=== PATIENT | male | born 1970 | race Caucasian/White ===

== ENCOUNTER 2020-06-28 11:59 | Outpatient (REF) | payer OTHER, SELFPAY ==
[2020-06-28 13:35] LABS: Ammonia 102 umol/L (13-55)
[2020-06-28 14:06] LABS: MANUAL DIFF FLAG NO
[2020-06-28 14:09] LABS: Basophils Percent Auto 0.7 % (0-2); Eosinophils Absolute Auto 0.2 X10*3/uL (0.0-0.4); Eosinophils Percent Auto 4.2 % (0-4); Hematocrit 28.3 % (42-52); Hemoglobin 9.6 g/dl (14.0-18.0); Imm Gran Abs Auto 0.02 X10*3/uL (0.00-0.03); Imm Gran Pct Auto 0.4 % (0.0-0.4); Lymphocytes Absolute Auto 1.4 X10*3/uL (1.2-4.9); Mean Corpuscular HGB Conc 33.9 g/dl (31.0-36.0); Mean Corpuscular Hemoglobin 33.7 pg (27.0-33.0); Mean Corpuscular Volume 99.3 fL (80-98); Mean Platelet Volume 10.5 fL (9.4-12.4); Monocytes Absolute Auto 0.4 X10*3/uL (0.1-1.2); Monocytes Percent Auto 9.5 % (2-11); Neutrophils Absolute Auto 2.5 X10*3/uL (2.0-8.3); Neutrophils Percent Auto 55.2 % (45-73); Red Blood Count 2.85 X10*6/uL (4.60-5.80); Red Cell Distribution Width 18.6 % (11.0-16.0); White Blood Count 4.5 X10*3/uL (4.8-10.8)
[2020-06-28 14:17] LABS: Platelet Count 89 X10*3/uL (160-400)
[2020-06-28 14:29] LABS: INTERNATIONAL NORM RATIO 1.7 (0.9-1.1); Prothrombin Time 20.4 SEC (10.8-13.0)
[2020-06-28 14:49] LABS: Alanine Aminotransferase 25 U/L (0-40); Anion Gap 13 (12-20); Aspartate Amino Transferase 46 U/L (5-37); Blood Urea Nitrogen 16 mg/dL (9-16); Calcium 8.8 mg/dL (8.4-10.2); Carbon Dioxide 22 mmol/L (22-29); Chloride 104 mmol/L (96-108); Estimated Glomerular Filt Rate > 60; Glucose Random 157 mg/dL (60-115); Potassium 4.6 mmol/l (3.3-5.1); Sodium 134 mmol/L (135-145)
[2020-06-28 14:58] LABS: Prostate Specific Antigen Scr 0.54 ng/mL (<0.05-4.0)
== END 2020-06-28 12:00 | disposition home or self-care (01) ==
LOC: HO.LAB 11:59
PROVIDERS: PCP Internal Medicine; Visit Provider Physician Assistant
DX: K70.30 Alcoholic cirrhosis of liver without ascites (principal); I86.4 Gastric varices; Z12.5 Encounter for screening for malignant neoplasm of prostate
CPT/HCPCS: 36415; 80048; 82140; 84153; 84450; 84460; 85025; 85610

== ENCOUNTER 2020-07-18 11:14 | Outpatient (REF) | payer OTHER, SELFPAY ==
[2020-07-18 13:55] LABS: MANUAL DIFF FLAG NO
[2020-07-18 13:58] LABS: Basophils Percent Auto 0.6 % (0-2); Eosinophils Absolute Auto 0.2 X10*3/uL (0.0-0.4); Eosinophils Percent Auto 3.9 % (0-4); Hematocrit 26.8 % (42-52); Hemoglobin 9.3 g/dl (14.0-18.0); Imm Gran Abs Auto 0.01 X10*3/uL (0.00-0.03); Imm Gran Pct Auto 0.2 % (0.0-0.4); Immature Retic Fraction 3.7 % (2.3-13.4); Lymphocytes Absolute Auto 1.7 X10*3/uL (1.2-4.9); Lymphocytes Percent Auto 27.5 % (20-40); Mean Corpuscular HGB Conc 34.7 g/dl (31.0-36.0); Mean Corpuscular Hemoglobin 33.3 pg (27.0-33.0); Mean Corpuscular Volume 96.1 fL (80-98); Mean Platelet Volume 10.2 fL (9.4-12.4); Monocytes Absolute Auto 0.5 X10*3/uL (0.1-1.2); Monocytes Percent Auto 8.1 % (2-11); Neutrophils Absolute Auto 3.7 X10*3/uL (2.0-8.3); Neutrophils Percent Auto 59.7 % (45-73); Red Blood Count 2.79 X10*6/uL (4.60-5.80); Retic HGB Equivalent 38.9 pg (30.0-35.0); Reticulocytes Absolute 0.027 X10*6/uL (0.026-0.095); White Blood Count 6.2 X10*3/uL (4.8-10.8)
[2020-07-18 14:01] LABS: Platelet Count 78 X10*3/uL (160-400)
[2020-07-18 14:11] LABS: Estimated Average Glucose 105 mg/dL; Hemoglobin A1c % 5.3 %
[2020-07-18 14:36] LABS: Alanine Aminotransferase 46 U/L (0-40); Albumin Level 3.3 g/dL (3.5-5.0); Alkaline Phosphatase 117 U/L (39-117); Anion Gap 13 (12-20); Aspartate Amino Transferase 64 U/L (5-37); Bilirubin Total 3.3 mg/dL (0.0-1.0); Blood Urea Nitrogen 15 mg/dL (9-16); Calcium 8.9 mg/dL (8.4-10.2); Carbon Dioxide 23 mmol/L (22-29); Chloride 95 mmol/L (96-108); Cholesterol 325 mg/dL; Estimated Glomerular Filt Rate > 60; Glucose Fasting 99 mg/dL (60-99); HDL Cholesterol 83 mg/dL; Iron 226 mcg/dL (45-160); LDL Cholesterol Calculated 225 mg/dl; Potassium 4.2 mmol/l (3.3-5.1); Sodium 127 mmol/L (135-145); Total Iron Binding Capacity < 243 mcg/dL (228-428); Total Protein 7.2 g/dL (6.5-8.0); Triglycerides 88 mg/dL; Unsaturated Iron Binding < 17 ug/dL
[2020-07-18 14:45] LABS: Ferritin 606 ng/mL (20-250); T4 Thyroxine 5.2 ug/dL (4.5-12.0); Thyroid Stimulating Hormone 0.47 uIU/mL (0.32-4.0)
[2020-07-18 15:27] LABS: Folate > 20.0 ng/mL (> or = 4.0); Vitamin B12 1068 pg/mL (200-900)
== END 2020-07-18 11:15 | disposition home or self-care (01) ==
LOC: HO.HMGCLDS 11:14
PROVIDERS: PCP Internal Medicine; Visit Provider Internal Medicine
DX: E66.9 Obesity, unspecified (principal); G47.33 Obstructive sleep apnea (adult) (pediatric); F41.9 Anxiety disorder, unspecified; E78.00 Pure hypercholesterolemia, unspecified; I10 Essential (primary) hypertension; R73.02 Impaired glucose tolerance (oral); Z12.11 Encounter for screening for malignant neoplasm of colon
CPT/HCPCS: 36415; 80053; 80061; 82607; 82728; 82746; 83036; 83540; 84436; 84443; 85025; 85045

== ENCOUNTER 2020-08-13 11:47 | Outpatient (REF) | payer OTHER, SELFPAY ==
[2020-08-13 13:52] LABS: MANUAL DIFF FLAG NO
[2020-08-13 13:58] LABS: Basophils Percent Auto 0.8 % (0-2); Eosinophils Absolute Auto 0.2 X10*3/uL (0.0-0.4); Eosinophils Percent Auto 4.8 % (0-4); Hematocrit 25.6 % (42-52); Hemoglobin 8.8 g/dl (14.0-18.0); Imm Gran Abs Auto 0.02 X10*3/uL (0.00-0.03); Imm Gran Pct Auto 0.4 % (0.0-0.4); Lymphocytes Absolute Auto 1.3 X10*3/uL (1.2-4.9); Lymphocytes Percent Auto 26.5 % (20-40); Mean Corpuscular HGB Conc 34.4 g/dl (31.0-36.0); Mean Corpuscular Hemoglobin 34.4 pg (27.0-33.0); Mean Platelet Volume 9.6 fL (9.4-12.4); Monocytes Absolute Auto 0.5 X10*3/uL (0.1-1.2); Monocytes Percent Auto 8.9 % (2-11); Neutrophils Percent Auto 58.6 % (45-73); Red Blood Count 2.56 X10*6/uL (4.60-5.80); Red Cell Distribution Width 18.6 % (11.0-16.0); Reticulocyte Percent 2.7 % (0.5-1.8); Reticulocytes Absolute 0.068 X10*6/uL (0.026-0.095); White Blood Count 5.1 X10*3/uL (4.8-10.8)
[2020-08-13 14:01] LABS: INTERNATIONAL NORM RATIO 1.8 (0.9-1.1); Prothrombin Time 21.1 SEC (10.8-13.0)
[2020-08-13 14:03] LABS: Platelet Count 91 X10*3/uL (160-400)
[2020-08-13 14:27] LABS: Alanine Aminotransferase 55 U/L (0-40); Alkaline Phosphatase 194 U/L (39-117); Anion Gap 13 (12-20); Aspartate Amino Transferase 100 U/L (5-37); Bilirubin Total 4.3 mg/dL (0.0-1.0); Blood Urea Nitrogen 13 mg/dL (9-16); Calcium 8.7 mg/dL (8.4-10.2); Carbon Dioxide 23 mmol/L (22-29); Chloride 104 mmol/L (96-108); Cholesterol 294 mg/dL; Estimated Glomerular Filt Rate > 60; Glucose Random 91 mg/dL (60-115); HDL Cholesterol 54 mg/dL; Iron 103 mcg/dL (45-160); LDL Cholesterol Calculated 211 mg/dl; Percent Iron Saturation 41 % (15-50); Sodium 136 mmol/L (135-145); Total Iron Binding Capacity 252 mcg/dL (228-428); Triglycerides 148 mg/dL; Unsaturated Iron Binding 149 ug/dL
[2020-08-13 14:48] LABS: Ferritin 431 ng/mL (20-250)
[2020-08-13 15:15] LABS: Folate 8.8 ng/mL (> or = 4.0); Vitamin B12 1168 pg/mL (200-900)
== END 2020-08-13 11:48 | disposition home or self-care (01) ==
LOC: HO.HMGCLDS 11:47
PROVIDERS: PCP Internal Medicine; Visit Provider Internal Medicine
DX: K70.30 Alcoholic cirrhosis of liver without ascites (principal); E78.00 Pure hypercholesterolemia, unspecified
CPT/HCPCS: 36415; 80053; 80061; 82607; 82728; 82746; 83540; 85025; 85045; 85610

== ENCOUNTER 2024-02-14 15:23 | Outpatient (AMB) | payer OTHER, SELFPAY ==
--- NOTE | 2024-02-14 15:24 | MHC.PC.OV ---
Vital Signs 02/14/24 15:26 Height 5 ft 10 in Weight 192 lb BMI 27.5 BP 108/72 Blood Pressure Location Lt brachial Position Sitting Pulse 91 Pulse Source Pulse Oximeter Pulse Oximetry (%) 96 Oxygen Delivery Method Room Air Intake Visit Reasons: Hepatology Referral-Liver Transplant Gauger Chief Required: No Allergies No Known Allergies [No Known Allergies*] Allergy (Verified 02/14/24 15:27) Medication List - Last Reconciled 02/14/24 by Roderick Davidson MD cholecalciferol (vitamin D3) 50 mcg PO DAILY citalopram 20 mg PO DAILY magnesium oxide 400 mg PO DAILY multivitamin 1 tab PO DAILY tacrolimus 2 mg PO Q12H ursodiol 500 mg PO BID Tobacco use date assessed: 02/14/24 Dental Screening Dental Screen Date: 02/14/24 HPI Hepatology Referral-Liver Transplant HPI Details [age] year old overweight male(noted weight loss 30 lb) with history of transplanted liver hypercholesterolemia Shey anxiety disorder depression and impaired glucose tolerance last seen in 10/26/2022. Patient continues to follow-up with Gastroenterology and colonoscopy done 06/25/2022 having tubular adenoma. EGD done 06/25/2022 also. 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 Does have osteopenia 03/25/2023. Maria Fernanda last year discussion of stent removal May 2023. plt 108, no anemia sugar 88 tacrolimis 4.5 creatinine 0.95magn 1.7LFT N LDL 92, TC 178 TG181 HDL 58 PFSH Medical History (Updated 02/14/24 @ 16:23 by Roderick Davidson MD) Vitamin D deficiency Hypercholesterolemia Obstructive sleep apnea Obesity (BMI 30-39.9) Anxiety and depression Surgical History History of endoscopy History of hypospadias Family History Father Acute CVA (cerebrovascular accident) Mother No problems noted. Paternal Grandmother Cancer Social History Housing: House Alcohol intake: former Year quit: 2019 Patient Tobacco Use Status: Never used Tobacco e-Cigarette/Vaping Use: Never Used Second Hand Smoke Exposure: No service: No Current occupational status: disabled Cognitive needs: Yes Hearing needs: No Vision needs: No Questionnaire PHQ-9 Over the last 2 weeks, how often have you been bothered by any of the following problems? 1. Little interest or pleasure in doing things: not at all 2. Feeling down, depressed, or hopeless: not at all 3. Trouble falling or staying asleep, or sleeping too much: not at all 4. Feeling tired or having little energy: not at all 5. Poor appetite or overeating: not at all 6. Feeling bad about yourself - or that you are a failure or have let yourself or your family down: not at all 7. Trouble concentrating on things, such as reading the newspaper or watching television: not at all 8. Moving or speaking so slowly that other people could have noticed. Or the opposite - being so fidgety or restless that you have been moving around a lot more than usual: not at all 9. Thoughts that you would be better off or of hurting yourself in some way: not at all Total score: 0 Depression Screening Interpretation: Negative Depression Screening Done: Yes Source: Developed by Drs. Elroy Rudd, Ivet Jefferson, Tera Nowak and colleagues, with an educational shefali from [employer]. Thrive Questionnaire Date Thrive assessed: 02/14/24 I am a: Patient What is your living situation today?: I have a steady place to live Within the past 12 months, did the food you bought not last and you didn't have the money to get more?: Never true Within the past 12 months, did you worry whether your food would run out before you got money to buy more?: Never true Currently or been in a relationship where the following occur: no concerns reported THRIVE Score: 0 AUDIT C Alcohol Use Questionnaire (AUDIT-C) 1. How often do you have a drink containing alcohol?: Never 2. How many drinks containing alcohol do you have on a typical day when you are drinking?: 1 or 2 (0) 3. How often do you have six or more drinks on one occasion?: Never Total Score: 0 PETTY-7 AMB Questionnaire PETTY-7 Date PETTY - 7 assessed: 02/14/24 Source: Developed by Drs. Elroy Rudd, Ivet Jefferosn, Tera Nowak and colleagues, with an educational shefali from [employer]. Physical exam (Primary Care) Vital Signs: Last Vital Signs Pulse 91 02/14/24 15:26 BP 108/72 02/14/24 15:26 Pulse Ox 96 02/14/24 15:26 Oxygen Delivery Method Room Air 02/14/24 15:26 BMI result Body Mass Index 27.5 Tobacco/Smoking Status: Tobacco use Status Tobacco use date assessed 02/14/24 02/14/24 15:26 Patient Tobacco Use Status Never used Tobacco 02/14/24 15:26 e-Cigarette/Vaping Use Never Used 02/14/24 15:26 PHQ-9: PHQ-9 Score PHQ-9: Total score 0 02/14/24 15:27 Depression Screening Interpretation: Negative Thrive Assessment: Date of Thrive Assessment Date Thrive assessed 02/14/24 02/14/24 15:27 Currently or been in a relationship where the following occur: no concerns reported Const General: alert; No acute distress Eyes Conjunctivae: conjunctivae normal Resp Auscultation: clear to auscultation bilaterally Cardio Rate: regular rate Rhythm: regular rhythm GI Inspection: Yes normal to inspection Extrem General: Yes normal to inspection and No edema Assessment and Plan Assessment & Plan (1) Liver transplanted: Comment: [id number] with past medical history of EtOH cirrhosis status post liver transplant 01/31/2021 postop bile leak requiring ERCP with multiple stents with last stent June 2022 planned ERCP December 2022 recommendations colonoscopy done 2021, dermatology(09/2022) , bone density every 2-3 years, (plannedJun2022) Code(s): Z94.4 - Liver transplant status Plan: Patient continues to follow-up with [facility] doing good continuing with tacrolimus (2) HTN (hypertension): Comment: resolved Code(s): I10 - Essential (primary) hypertension Qualifiers: Hypertension type: essential hypertension Qualified Code(s): I10 - Essential (primary) hypertension Plan: resolved (3) PETTY (generalized anxiety disorder): Comment: couselling and therapy scheduled. Wolfgang Ruelas Q 5 weeks (03/2022) Code(s): F41.1 - Generalized anxiety disorder Plan: Blood pressure has been under control with no medication (4) Hypercholesterolemia: Code(s): E78.00 - Pure hypercholesterolemia, unspecified Plan: Avoid fried foods, chicken skin, eggs, butter margarine, pastries and meat. Be it pork or beef they have a lot of cholesterol (5) Obstructive sleep apnea: Comment: Two thousand sixteen, NO CPAP - resolved Code(s): G47.33 - Obstructive sleep apnea (adult) (pediatric) (6) MDD (major depressive disorder): Comment: therapist monthly and psychiatrist Q 6 months Code(s): F32.9 - Major depressive disorder, single episode, unspecified Qualifiers: Major depression recurrence: recurrent Active/Remission status: currently active Major depression episode severity: moderate Qualified Code(s): F33.1 - Major depressive disorder, recurrent, moderate Plan: Continuing counseling and therapy. (7) Overweight (BMI 25.0-29.9): Code(s): E66.3 - Overweight Plan: diet and exercises Orders: Orders Thyroid Stimulating Hormone Today I10 - Essential (primary) hypertension Free T4 (Free Thyroxine) Today I10 - Essential (primary) hypertension Vitamin B12 and Folate Today I10 - Essential (primary) hypertension Prostate Specific Antigen Scr Today I10 - Essential (primary) hypertension Coding Level of Care Code Est Pt Level 4 (43531) Diagnoses Liver transplanted Z94.4 Essential hypertension I10 Hypertension type: essential hypertension PETTY (generalized anxiety disorder) F41.1 Hypercholesterolemia E78.00 Obstructive sleep apnea G47.33 Moderate episode of recurrent major depressive disorder F33.1 Major depression recurrence: recurrent Active/Remission status: currently active Major depression episode severity: moderate Overweight (BMI 25.0-29.9) E66.3
[2024-02-14 15:26] VITALS: BP 108/72; PULSE 91; O2SAT 96; BMI 27.5
== END 2024-02-14 16:30 | disposition home or self-care (01) ==
PROVIDERS: PCP Internal Medicine; Visit Provider Internal Medicine
DX: I10 Essential (primary) hypertension (principal); F33.1 Major depressive disorder, recurrent, moderate; Z94.4 Liver transplant status; F41.1 Generalized anxiety disorder; E78.00 Pure hypercholesterolemia, unspecified; G47.33 Obstructive sleep apnea (adult) (pediatric); E66.3 Overweight
CPT/HCPCS: 99214

== ENCOUNTER 2024-03-15 10:02 | Outpatient (REF) | payer OTHER, SELFPAY ==
[2024-03-15 14:07] LABS: Free T4 (Free Thyroxine) 0.86 ng/dL (0.71-1.85); Thyroid Stimulating Hormone 0.66 uIU/mL (0.32-4.0)
[2024-03-15 14:24] LABS: Folate 14.5 ng/mL (> or = 4.0); Prostate Specific Antigen Scr 1.03 ng/mL (<0.05-4.0); Vitamin B12 549 pg/mL (200-900)
== END 2024-03-15 10:03 | disposition home or self-care (01) ==
LOC: HO.HMGCLDS 10:02
PROVIDERS: PCP Internal Medicine; Visit Provider Internal Medicine
DX: I10 Essential (primary) hypertension (principal); Z12.5 Encounter for screening for malignant neoplasm of prostate
CPT/HCPCS: 36415; 82607; 82746; 84153; 84439; 84443

== ENCOUNTER 2024-07-06 14:57 | Outpatient (AMB) | payer OTHER, SELFPAY ==
[2024-07-06 14:59] VITALS: BP 122/82; PULSE 78; O2SAT 95; BMI 26.4
--- NOTE | 2024-07-06 14:59 | A.OFFPC_ITS ---
Vital Signs 07/06/24 14:59 Height 5 ft 10 in Weight 184 lb BMI 26.4 BP 122/82 Blood Pressure Location Lt brachial Position Sitting Pulse 78 Pulse Source Pulse Oximeter Pulse Oximetry (%) 95 Oxygen Delivery Method Room Air Intake Visit Reasons: PE Raveler Required: No Accompanied by: Self / Same As Patient Allergies No Known Allergies [No Known Allergies*] Allergy (Verified 07/06/24 14:59) Medication List - Last Reconciled 07/06/24 by Roderick Davidson MD cholecalciferol (vitamin D3) 50 mcg PO DAILY citalopram 20 mg PO DAILY magnesium oxide 400 mg PO DAILY multivitamin 1 tab PO DAILY tacrolimus 2 mg PO Q12H ursodiol 500 mg PO BID Tobacco use date assessed: 02/14/24 Dental Screening Dental Screen Date: 02/14/24 HPI PE HPI Details 54-year-old overweight male with a histo ry of liver transplant 01/31/2021(for alcohol-related cirrhosis) hypertension generalized anxiety disorder hypercholesterolemia obstructive sleep apnea major depressive disorder coming in for physical exam last seen in February. Patient's last colon test is 2021 with tubular adenoma. Review of the notes liver transplant clinic seen in September. On tacrolimus advised to decrease on ursodiol advised Dermatology yearly colonoscopy next 202603/25/2023 bone density shows osteopenia, 07/05/2024 wbc 4.3, hgb 14.7/44.2 plt 120tacrolimus 3.1 , NA 138, k 4.9 creatinine 1.01 gfr 88 ca 9.6 magnesium 1.5 LFT N LDL 11/2023 T 178, HDL 58, TRIG 181, LDL 92 PFSH Medical History (Updated 07/06/24 @ 16:05 by Roderick Davidson MD) Vitamin D deficiency Hypercholesterolemia Obstructive sleep apnea Obesity (BMI 30-39.9) Anxiety and depression Surgical History History of endoscopy History of hypospadias Family History Father Acute CVA (cerebrovascular accident) Mother No problems noted. Paternal Grandmother Cancer Social History Housing: House Alcohol intake: former Year quit: 2019 Patient Tobacco Use Status: Never used Tobacco Tobacco use type: Cigarette e-Cigarette/Vaping Use: Never Used Second Hand Smoke Exposure: No service: No Current occupational status: disabled Cognitive needs: Yes Hearing needs: No Vision needs: No Questionnaire PHQ-9 Over the last 2 weeks, how often have you been bothered by any of the following problems? 1. Little interest or pleasure in doing things: not at all 2. Feeling down, depressed, or hopeless: not at all 3. Trouble falling or staying asleep, or sleeping too much: not at all 4. Feeling tired or having little energy: not at all 5. Poor appetite or overeating: not at all 6. Feeling bad about yourself - or that you are a failure or have let yourself or your family down: not at all 7. Trouble concentrating on things, such as reading the newspaper or watching television: not at all 8. Moving or speaking so slowly that other people could have noticed. Or the opposite - being so fidgety or restless that you have been moving around a lot more than usual: not at all 9. Thoughts that you would be better off or of hurting yourself in some way: not at all Total score: 0 Source: Developed by Drs. Elroy Rudd, Ivet Jefferson, Tera Nowak and colleagues, with an educational shefali from [employer]. Thrive Questionnaire Date Thrive assessed: 02/14/24 I am a: Patient What is your living situation today?: I have a steady place to live Within the past 12 months, did the food you bought not last and you didn't have the money to get more?: I choose not to answer this question Within the past 12 months, did you worry whether your food would run out before you got money to buy more?: I choose not to answer this question Do you have trouble paying for medicines?: No Do you have trouble getting transportation to medical appointments?: No Do you have trouble paying your heating and electricity bill?: No Do you have trouble taking care of your child, family member or friend?: No Do you have trouble with day-to-day activities such as bathing, preparing meals, shopping, managing finances, etc.?: No Are you currently unemployed and looking for a job?: No Are you interested in more education?: I choose not to answer this question Please select the resources that you would like help with: None Currently or been in a relationship where the following occur: I choose not to answer THRIVE Score: 0 AUDIT C Alcohol Use Questionnaire (AUDIT-C) 1. How often do you have a drink containing alcohol?: Never Total Score: 0 PETTY-7 AMB Questionnaire PETTY-7 Date PETTY - 7 assessed: 02/14/24 Feeling nervous, anxious, or on edge: 0 = Not at all Not being able to stop or control worryin = Not at all Worrying too much about different things: 0 = Not at all Trouble relaxin = Not at all Being so restless that it is hard to sit still: 0 = Not at all Becoming easily annoyed or irritable: 0 = Not at all Feeling afraid as if something awful might happen: 0 = Not at all Total PETTY-7 score (0-4 normal; 5-9 mild; 10-14 moderate; 15-21 severe): 0 Source: Developed by Drs. Elroy Rudd, Ivet Jefferson, Tera Nowak and colleagues, with an educational shefali from [employer]. Review of Systems Const Denies poor appetite and Denies weakness Eyes Denies no additional complaints ENT Reports Normal hearing present, Denies dizziness, Denies nasal congestion, Denies tinnitus and Denies sore throat Card Denies chest pain, Denies syncope, Denies rapid heart rate and Denies dyspnea Resp Denies cough and Denies dyspnea GI Denies change in stool character, Reports constipation, Denies diarrhea, Denies nausea and Denies vomiting Denies dysuria and Denies urinary frequency Neuro Reports Normal hearing present, Denies confusion, Denies dizziness, Denies syncope and Denies weakness Psych Denies confusion Physical exam (Primary Care) Vital Signs: Last Vital Signs Pulse 78 07/06/24 14:59 BP 122/82 07/06/24 14:59 Pulse Ox 95 07/06/24 14:59 Oxygen Delivery Method Room Air 07/06/24 14:59 BMI result Body Mass Index 26.4 Tobacco/Smoking Status: Tobacco use Status Tobacco use date assessed 02/14/24 07/06/24 15:03 Patient Tobacco Use Status Never used Tobacco 07/06/24 15:03 Tobacco use type Cigarette 07/06/24 15:03 e-Cigarette/Vaping Use Never Used 07/06/24 15:03 PHQ-9: PHQ-9 Score PHQ-9: Total score 0 07/06/24 15:48 Thrive Assessment: Date of Thrive Assessment Date Thrive assessed 02/14/24 07/06/24 15:03 Currently or been in a relationship where the following occur: I choose not to answer Const General: No confusion Orientation/consciousness: No confusion HENMT Other: impacted cerument bilateral Head: Yes normocephalic Ears: external ears normal Face and sinus: Yes normal facial exam Mouth: moist mucous membranes Throat: Yes tonsils normal Eyes Conjunctivae: conjunctivae normal Pupils: Equal, round and reactive pupils present and Pupil accommodation reflex normal Direct Ophthalmoscopy: normal light reflex Neck Neck: No lymphadenopathy Thyroid: Thyroid normal Chest Chest palpation & inspection: normal inspection of the chest Resp Effort & Inspection: normal respiratory effort and no audible wheezes Auscultation: clear to auscultation bilaterally, no crackles, no wheezes and lung sounds not diminished Cardio Rate: regular rate Rhythm: regular rhythm Peripheral pulses: radial pulses present and dorsalis pedis present GI Other: guaiac negative prostate n Palpation (GI): no masses Auscultation: normal bowel sounds and normoactive bowel sounds Male General Exam: Yes normal external exam Skin General skin exam: no rashes or lesions noted Rashes: no rashes Neuro General: No confusion Cranial nerves: Yes Equal, round and reactive pupils present and Yes Normal hearing present Cognition (Neuro): normal cognition Gait exam (Neuro): Normal gait present Motor exam (neuro): 5/5 motor strength present throughout Deep tendon reflexes (DTR's): Right brachioradialis reflex intensity grade: 2+, Left brachioradialis reflex intensity grade: 2+, Right patellar reflex intensity grade: 2+ and Left patellar reflex intensity grade: 2+ Extrem General: No edema Office Procedures Flu Questionnaire Does the patient have a severe egg allergy?: No Does the patient have severe life threatening allergies?: No Does the patient have a fever or illness today?: No Has the patient ever had Guillain-Heppner Syndrome?: No Has the patient ever had any past reaction to a flu shot?: No Immunizations Fluarix Triv [id number] (PF) 45 mcg (15 mcg x 3)/0.5 mL IM syringe Performing Provider: Roderick Davidson MD [place] [facility] [place] [facility] Administered by: SHERRIE Spicer on 07/06/24 16:23 Dose Route Admin Location Dispensed Lot Number Expiration Date [facility] Medication Reconciliation Technician 0.5 mL IM Right Deltoid 0.5 mL [id number] 03/05/25 [id number] [employer] VIS Given Date VIS Provided VIS Publication Date 07/06/24 Single Vaccine 21 Eligibility Eligibility Date Funding Source Not [facility] Eligible 07/06/24 Private Coding Level of Care Code Est Pt Prev Care 40-64y(35042) Diagnoses Annual physical exam Z00.00 Overweight (BMI 25.0-29.9) E66.3 Liver transplanted Z94.4 Essential hypertension I10 Hypertension type: essential hypertension PETTY (generalized anxiety disorder) F41.1 Impacted cerumen of both ears H61.23 Assessment & Plan Assessment & Plan (1) Annual physical exam: Code(s): Z00.00 - Encounter for general adult medical examination without abnormal findings Category: Medical Plan: Patient is advised to eat healthy, keep well hydrated, keep active and have adequate sleep. (2) Overweight (BMI 25.0-29.9): Code(s): E66.3 - Overweight Category: Medical Plan: Continue with diet and exercise (3) Liver transplanted: Comment: [id number] with past medical history of EtOH cirrhosis status post liver transplant 01/31/2021 postop bile leak requiring ERCP with multiple stents with last stent June 2022 planned ERCP December 2022 recommendations colonoscopy done 2021, dermatology(09/2022) , bone density every 2-3 years, (plannedJun2022) Code(s): Z94.4 - Liver transplant status Category: Surgical Plan: Patient follows up with the liver transplant team on tacrolimus (4) HTN (hypertension): Comment: resolved Code(s): I10 - Essential (primary) hypertension Category: Medical Qualifiers: Hypertension type: essential hypertension Qualified Code(s): I10 - Essential (primary) hypertension Plan: Resolved and continuing to monitor (5) PETTY (generalized anxiety disorder): Comment: couselling and therapy scheduled. Wolfgang Ruelas Q 5 weeks (03/2022) Code(s): F41.1 - Generalized anxiety disorder Category: Medical Plan: Continue with counseling and therapy (6) Impacted cerumen of both ears: Code(s): H61.23 - Impacted cerumen, bilateral Category: Medical Plan: schedule for ear irrigation Orders: Orders Lipid Panel Today E78.00 - Pure hypercholesterolemia, unspecified Comprehensive Met. Panel Today E78.00 - Pure hypercholesterolemia, unspecified Influenza [id number] Immunization Today Z23 - Encounter for immunization Referrals Ophthalmology Referral H53.9 - Unspecified visual disturbance Medications: New Fluarix Triv [id number] (PF) (flu vacc [id number] 6mos up(PF)) 0.5 mL IM ONCE 0.5 mL 0RF NS Z23 - Encounter for immunization
== END 2024-07-06 15:55 | disposition home or self-care (01) ==
LOC: HO.HMCH 14:58
PROVIDERS: PCP Internal Medicine; Visit Provider Internal Medicine
DX: Z00.00 Encounter for general adult medical examination without abnormal findings (principal); E66.3 Overweight; Z94.4 Liver transplant status; I10 Essential (primary) hypertension; F41.1 Generalized anxiety disorder; H61.23 Impacted cerumen, bilateral; Z23 Encounter for immunization

== ENCOUNTER → 2024-07-06 14:57 | Outpatient (BNVA) | payer OTHER, SELFPAY | PROVIDERS: PCP Internal Medicine; Visit Provider Internal Medicine | DX: Z00.00 Encounter for general adult medical examination without abnormal findings (principal); E66.3 Overweight; Z68.26 Body mass index [BMI] 26.0-26.9, adult; I10 Essential (primary) hypertension; F41.1 Generalized anxiety disorder; H61.23 Impacted cerumen, bilateral; Z94.4 Liver transplant status; Z23 Encounter for immunization | CPT/HCPCS: 90471; 90656; 96127 ==

== ENCOUNTER 2024-07-18 15:56 | Outpatient (AMB) | payer OTHER, SELFPAY ==
[2024-07-18 15:57] VITALS: BP 110/70; PULSE 71; O2SAT 95; BMI 26.7
--- NOTE | 2024-07-18 15:57 | MHC.PC.OV ---
Vital Signs 07/18/24 15:57 Height 5 ft 10 in Weight 186 lb BMI 26.7 BP 110/70 Blood Pressure Location Lt brachial Position Sitting Pulse 71 Pulse Source Pulse Oximeter Pulse Oximetry (%) 95 Oxygen Delivery Method Room Air Intake Visit Reasons: Ear Irrigation [employer] Supervisor Required: No Allergies No Known Allergies [No Known Allergies*] Allergy (Verified 07/18/24 15:57) Tobacco use date assessed: 02/14/24 Dental Screening Dental Screen Date: 02/14/24 HPI Ear Irrigation HPI Details 54-year-old male with past medical history of hypertension, alcoholic cirrhosis of the liver, generalized anxiety disorder, obstructive sleep apnea, hypercholesterolemia and impaired glucose tolerance last seen by Dr. Davidson coming in for ear flushing. Patient states he was Wednesday at goal last week which has now resolved. He has a blocked feeling in bilateral ears [facility] Medical History (Updated 07/06/24 @ 16:05 by Roderick Davidson MD) Vitamin D deficiency Hypercholesterolemia Obstructive sleep apnea Obesity (BMI 30-39.9) Anxiety and depression Surgical History History of endoscopy History of hypospadias Family History Father Acute CVA (cerebrovascular accident) Mother No problems noted. Paternal Grandmother Cancer Social History Housing: House Alcohol intake: former Year quit: 2019 Patient Tobacco Use Status: Never used Tobacco Tobacco use type: Cigarette e-Cigarette/Vaping Use: Never Used Second Hand Smoke Exposure: No service: No Current occupational status: disabled Cognitive needs: Yes Hearing needs: No Vision needs: No Questionnaire Thrive Questionnaire Date Thrive assessed: 07/06/24 I am a: Patient What is your living situation today?: I have a steady place to live Within the past 12 months, did the food you bought not last and you didn't have the money to get more?: I choose not to answer this question Within the past 12 months, did you worry whether your food would run out before you got money to buy more?: I choose not to answer this question Do you have trouble paying for medicines?: No Do you have trouble getting transportation to medical appointments?: No Do you have trouble paying your heating and electricity bill?: No Do you have trouble taking care of your child, family member or friend?: No Do you have trouble with day-to-day activities such as bathing, preparing meals, shopping, managing finances, etc.?: No Are you currently unemployed and looking for a job?: No Are you interested in more education?: I choose not to answer this question Please select the resources that you would like help with: None Currently or been in a relationship where the following occur: I choose not to answer THRIVE Score: 0 AUDIT C Alcohol Use Questionnaire (AUDIT-C) 1. How often do you have a drink containing alcohol?: Never 3. How often do you have six or more drinks on one occasion?: Never Total Score: 0 PETTY-7 AMB Questionnaire PETTY-7 Date PETTY - 7 assessed: 02/14/24 Source: Developed by Drs. Elroy Rudd, Ivte Jefferson, Tera Nowak and colleagues, with an educational shefali from [employer]. Review of Systems Const Denies body aches, Denies chills and Denies fever(s) Eyes Reports no additional complaints ENT Details: Blocked ear feeling without pain or drainage Card Reports no additional complaints Resp Reports no additional complaints Musc Reports no additional complaints Skin/Breast Reports system reviewed and no additional complaints, except as documented Physical exam (Primary Care) Vital Signs: Last Vital Signs Pulse 71 07/18/24 15:57 BP 110/70 07/18/24 15:57 Pulse Ox 95 07/18/24 15:57 Oxygen Delivery Method Room Air 07/18/24 15:57 BMI result Body Mass Index 26.7 Tobacco/Smoking Status: Tobacco use Status Tobacco use date assessed 02/14/24 07/18/24 15:57 Patient Tobacco Use Status Never used Tobacco 07/18/24 15:57 Tobacco use type Cigarette 07/18/24 15:57 e-Cigarette/Vaping Use Never Used 07/18/24 15:57 Thrive Assessment: Date of Thrive Assessment Date Thrive assessed 07/06/24 07/18/24 15:57 Currently or been in a relationship where the following occur: I choose not to answer Const General: cooperative, healthy appearing, comfortable and no acute distress Orientation/consciousness: patient oriented x3 HENMT Head: Yes normocephalic Ears: hearing grossly normal bilaterally and Abnormal EAC present cerumen impaction bilateral General nose exam: Normal external nose present Resp Effort & Inspection: normal respiratory effort Skin General skin exam: no rashes or lesions noted Neuro General: patient oriented x3 Gait exam (Neuro): Normal gait present Extrem General: Yes normal to inspection, Yes full ROM and No edema Psych Affect: normal affect Attitude: cooperative Insight: Good insight present (Psych) Judgement: Good judgement present (Psych) Office Procedures Cerumen Removal From which ear canal was the cerumen removed: bilateral Removal: irrigation and otoscope w/curette Notes: patient tolerated procedure well, no complications and ear canal clear [id number] Irrigation/Lavage Coding Level of Care Code Est Pt Level 3 (77520) Diagnoses Impacted cerumen of both ears H61.23 CPT Codes Office Procedure - CPT: 15054-Urr Irrigation/Lavage ([id number]) Assessment & Plan Assessment & Plan (1) Impacted cerumen of both ears: Code(s): H61.23 - Impacted cerumen, bilateral Category: Medical Plan: Bilateral ears were cleared using irrigation and lighted curette. TMs are visualized as intact with well aerated middle ear spaces. Patient tolerated the procedure well and ear canals were clear. Follow up as needed for this concern. Plan This note was constructed using voice recognition software. While every effort has been made to ensure accuracy and emergency dispatch operator, still areas may have been included sometimes these areas may affect the content or meeting of the given symptoms. Total time spent caring for the patient today was 20 minutes. This includes time spent before the visit reviewing the chart, time spent during the visit, and time spent after the visit and documentation.
== END 2024-07-18 16:39 | disposition home or self-care (01) ==
PROVIDERS: PCP Internal Medicine
DX: H61.23 Impacted cerumen, bilateral (principal)

== ENCOUNTER → 2024-07-18 15:56 | Outpatient (BNVA) | payer OTHER, SELFPAY | PROVIDERS: PCP Internal Medicine | DX: H61.23 Impacted cerumen, bilateral (principal) | CPT/HCPCS: 69210 ==

== ENCOUNTER 2024-08-08 12:44 | Outpatient (AMB) | payer OTHER, SELFPAY ==
--- NOTE | 2024-08-08 12:45 | A.OFFPC_ITS ---
Intake Visit Reasons: Sinus infection Allergies No Known Allergies [No Known Allergies*] Allergy (Verified 08/08/24 12:46) Tobacco use date assessed: 02/14/24 Dental Screening Dental Screen Date: 02/14/24 HPI Sinus infection HPI Details 54-year-old male with a history of liver cirrhosis having had tips done with generalized anxiety disorder hypertension obstructive sleep apnea hypercholesterolemia and gastric ulcer calling in through Telehealth. Patient was last seen in 07/18/2024 sinus congestion, ear congestion , week , chills, , had sore throat, , no sob, PFSH Medical History (Updated 08/08/24 @ 12:55 by Roderick Davidson MD) Vitamin D deficiency Hypercholesterolemia Obstructive sleep apnea Obesity (BMI 30-39.9) Anxiety and depression Surgical History History of endoscopy History of hypospadias Family History (Updated 08/08/24 @ 12:46 by Ashly Meza CMA) Father Acute CVA (cerebrovascular accident) Mother No problems noted. Paternal Grandmother Cancer Social History Housing: House Alcohol intake: former Year quit: 2019 Patient Tobacco Use Status: Never used Tobacco Tobacco use type: Cigarette e-Cigarette/Vaping Use: Never Used Second Hand Smoke Exposure: No service: No Current occupational status: disabled Cognitive needs: Yes Hearing needs: No Vision needs: No Questionnaire PHQ-9 Over the last 2 weeks, how often have you been bothered by any of the following problems? 1. Little interest or pleasure in doing things: not at all 2. Feeling down, depressed, or hopeless: not at all 3. Trouble falling or staying asleep, or sleeping too much: not at all 4. Feeling tired or having little energy: not at all 5. Poor appetite or overeating: not at all 6. Feeling bad about yourself - or that you are a failure or have let yourself or your family down: not at all 7. Trouble concentrating on things, such as reading the newspaper or watching television: not at all 8. Moving or speaking so slowly that other people could have noticed. Or the opposite - being so fidgety or restless that you have been moving around a lot more than usual: not at all 9. Thoughts that you would be better off or of hurting yourself in some way: not at all Total score: 0 Source: Developed by Drs. Elroy Rudd, Ivet Jefferson, Tera Nowak and colleagues, with an educational shefali from [employer] Thrive Questionnaire Date Thrive assessed: 07/06/24 PETTY-7 AMB Questionnaire PETTY-7 Date PETTY - 7 assessed: 02/14/24 Source: Developed by Drs. Elroy Rudd, Ivet Jefferson, Tera Nowak and colleagues, with an educational shefali from [employer] Physical exam (Primary Care) Tobacco/Smoking Status: Tobacco use Status Tobacco use date assessed 02/14/24 08/08/24 12:46 Patient Tobacco Use Status Never used Tobacco 08/08/24 12:46 Tobacco use type Cigarette 08/08/24 12:46 e-Cigarette/Vaping Use Never Used 08/08/24 12:46 PHQ-9: PHQ-9 Score PHQ-9: Total score 0 08/08/24 12:46 Thrive Assessment: Date of Thrive Assessment Date Thrive assessed 07/06/24 08/08/24 12:46 Telehealth Telehealth Location of provider rendering services: practice address Location of patient: address on file Patient Identification confirmed using: Name, : Yes Telehealth method: video (Iphone) Patient verbally consented to treatment: Yes Patient verbally consented to billing insurance company: Yes Patient informed of any privacy concerns related to visit: Yes Minutes spent on Phone/Video with Pt.: 15 Coding Level of Care Code Tele Est Pt Level 3 (42569) Diagnoses Sinus congestion R09.81 Assessment & Plan Assessment & Plan (1) Sinus congestion: Code(s): R09.81 - Nasal congestion Category: Medical Plan: nasal spray to use , increase oral fluids. Antibiotic was sent but try to hold off specially if getting better Medications: New amoxicillin-pot clavulanate 500-125 mg (Augmentin) 1 tab PO TID 7 days 21 tabs 0RF
== END 2024-08-08 14:59 | disposition home or self-care (01) ==
PROVIDERS: PCP Internal Medicine; Visit Provider Internal Medicine
DX: R09.81 Nasal congestion (principal)

== ENCOUNTER → 2024-08-08 12:44 | Outpatient (BNVA) | payer OTHER, SELFPAY | PROVIDERS: PCP Internal Medicine; Visit Provider Internal Medicine ==